=== PATIENT | male | born 1955 | race Caucasian/White ===

== ENCOUNTER 2017-01-24 09:52 | Emergency (ER) | payer OTHER ==
[~2017-01-24] VITALS: Ht 198.1 cm; Wt 81.6 kg
[~2017-01-24 09:52] MED LIST: COLACE100 MG PO; DEPAKOTE250 MG PO; DEPAKOTE500 MG PO; IBUPROFEN800 MG PO; LEVETIRACETAM500 MG PO; LEVETIRACETAM750 MG PO; LEVOFLOXACIN750 MG PO; METHADONE10 MG PO; PERCOCET 5/31 TABLET PO; THERAGRAN1 TABLET PO; ULTRAM50 MG PO; VALIUM5 MG PO; VITAMIN B-1100 MG PO
[2017-01-24] MEDS ORDERED: LISINOPRIL10 MG PO (12:08)
[2017-01-24] MEDS ORDERED: BUTALB-APAP-CA1 EACH PO (12:10)
[2017-01-24] MEDS ORDERED: PERCOCET 5/31 TABLET PO (13:58)
[2017-01-24] MEDS ORDERED: FLEXERIL5 MG PO (13:58)
[2017-01-24 14:04] VITALS: BP 128/101
== END 2017-01-24 14:15 | disposition home or self-care (01) ==
LOC: RME 09:52 → EME 09:52 → RME 14:15
DX: M54.5 Low back pain (principal); I71.4 Abdominal aortic aneurysm, without rupture; Z85.46 Personal history of malignant neoplasm of prostate
CPT/HCPCS: 72110; 99281; 99283